=== PATIENT | male | born 1935 | race Caucasian/White ===

== ENCOUNTER 2016-11-29 13:58 | Emergency (ER) | payer MEDICARE ==
[~2016-11-29] VITALS: Ht 177.8 cm; Wt 91.0 kg
[~2016-11-29 13:58] MED LIST: IBUP600T44 PO; RXC5 PO
[2016-11-29 14:14] VITALS: TEMP 36.5; Ht 177.8 cm; Wt 91.0 kg
[2016-11-29] MEDS ORDERED: SODIUM CHLORIDE 0.9% 1000ML 250 ML IV STA (14:20)
--- NOTE | 2016-11-29 14:28 | EMERGENCY ROOM VISIT NOTE ---
History Report prepared by Nic: Holland Herrera Under the Supervision of: Dr. Gilberto Miller M.D. First contact with patient: 14:12 Stated Complaint: EVALUATION History of Present Illness The patient is an 81 year old male who presents to the Emergency Room for an evaluation after losing consciousness yesterday. The patient states he fell yesterday because he thinks he lost consciousness. He reports he was trying to put something in the closet. The patient notes he has passed out before, but yesterday he did not feel sick. He states he injured his knee when he fell, but it was evaluated by an orthopedic today. The patient reports his tests earlier were negative, and his knee is okay. He notes he feels lethargic, but it is his baseline. The patient states he lives alone and uses a cane to ambulate. He reports he takes 600mg of Ibuprofen three times a day for chronic back pain. The patient denies injury to his head, incontinence, biting his tongue, a history of seizures, chest pain, new shortness of breath, feeling his heart skipping or racing, abdominal pain, new vision changes, numbness, weakness, trouble speaking, blood or black stool, urinary symptoms, fever, taking new medication, being on blood thinners, and a history of diabetes. Source of History: patient Onset: yesterday Position: other (global) Quality: other (loss of consciousness) Timing: resolved Associated Symptoms: No fevers, No chest pain, No SOB, No abdominal pain, No urinary symptoms, No weakness, No numbness Note: Denies: injury to his head, incontinence, biting his tongue, a history of seizures, feeling his heart skipping or racing, new vision changes, trouble speaking, blood or black stool, taking new medication, being on blood thinners, and a history of diabetes. Review of Systems See HPI for pertinent positives & negatives. A total of 10 systems reviewed and were otherwise negative. Past Medical & Surgical Patient denies a history of chronic illness. Old medical records were reviewed. Nurse's notes were reviewed and I agree with. Family History Patient reports no known family medical history. Social History Smoking Status: Never Smoker Marital Status: Housing Status: lives alone Occupation Status: retired Current/Historical Medications Scheduled PRN Ibuprofen (Motrin), 600 MG PO DAILY PRN for Pain Allergies Coded Allergies: No Known Allergies (Unverified , 8/25/14) Physical Exam Vital Signs Date Time Temp Pulse Resp B/P (MAP) Pulse Ox O2 Delivery O2 Flow Rate FiO2 11/29/16 16:47 61 14 115/73 93 11/29/16 16:00 74 15 125/66 92 Room Air 11/29/16 15:09 70 15 118/69 95 Room Air 11/29/16 14:14 36.5 71 20 130/77 92 Room Air 11/29/16 14:13 81 Physical Exam General: Non-ill appearing older male in no acute distress. Normal speech. Alert and oriented x3. HEENT: Normal cephalic atraumatic. Pupils are equal round and reactive to light. Extraocular movements are intact. Oropharynx is pink with moist mucous membranes. No swelling of the mouth lips or tongue. Neck: Supple with a midline trachea. No meningeal signs or stiffness, no JVD or bruits. No Stridor. Chest: Clear to auscultation bilaterally. No wheezes or rhonchi. No increased work of breathing. Heart: regular rate and rhythm. Abdomen: Soft nontender, nondistended without rebound guarding or rigidity. Extremities: No cyanosis clubbing or edema. No calf tenderness or assymetry. Bruise on the left knee minimal tenderness on palpation. Spine/Back. Non tender to palpation. No CVA tenderness Skin: Good turgor without rashes. Neurologic exam: Cranial nerves two through 12 are intact. Motor and sensation are intact and symmetrical throughout. No tremor. Finger to nose intact. No pronator drift. Medical Decision & Procedures ER Provider Diagnostic Interpretation: Radiology results as stated below per my review and radiologist interpretation: HEAD WITHOUT CONTRAST (CT) CLINICAL HISTORY: 81 years-old Male with fall yesterday. Acute head injury status post fall TECHNIQUE: Multiple axial CT images of the head were obtained without contrast. A dose lowering technique was utilized adhering to the principles of ALARA. CT DOSE: 614.27 mGy.cm COMPARISON: Brain MR 01/20/2016. FINDINGS: No acute intracranial hemorrhage, midline shift, mass, large territorial ischemia or abnormal extra-axial collection. Mild atrophy with ex vacuo ventriculomegaly. Background chronic microvascular ischemic changes. 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 3 mm focus of increased attenuation near the right 10:20 AM on image 12 of series 2 suggests a small calcification. The calvarium is intact. The mastoid air cells, and middle ear cavities are clear. Mild ethmoid sinus disease. IMPRESSION: 1. No acute intracranial abnormality. 2. Atrophy with chronic microvascular ischemic changes and remote lacunar infarction of the left bray radiata. The above report was generated using voice recognition software. It may contain grammatical, syntax or spelling errors. Electronically signed by: Twan Diaz M.D. 11/29/2016 3:18 PM Dictated Date/Time: 11/29/2016 3:02 PM CHEST ONE VIEW PORTABLE CLINICAL HISTORY: Atypical chest pain COMPARISON STUDY: 12/09/2015 FINDINGS: The heart remains enlarged. There are calcified left hilar lymph nodes. There is no failure. There is no focal pulmonary consolidation. There are no pleural effusions.[ IMPRESSION: No active disease in the chest. Electronically signed by: Gunner Stover M.D. 11/29/2016 2:47 PM Dictated Date/Time: 11/29/2016 2:47 PM Laboratory Results 11/29/16 14:30 Red Blood Count 4.04, Mean Corpuscular Volume 92.6, Mean Corpuscular Hemoglobin 31.9, Mean Corpuscular Hemoglobin Concent 34.5, Mean Platelet Volume 9.4, Neutrophils (%) (Auto) 72.6, Lymphocytes (%) (Auto) 14.4, Monocytes (%) (Auto) 7.8, Eosinophils (%) (Auto) 2.7, Basophils (%) (Auto) 0.8, Neutrophils # (Auto) 5.43, Lymphocytes # (Auto) 1.08, Monocytes # (Auto) 0.58, Eosinophils # (Auto) 0.20, Basophils # (Auto) 0.06 11/29/16 14:30 Test 11/29/16 14:30 11/29/16 14:37 White Blood Count 7.48 K/uL (4.8-10.8) Red Blood Count 4.04 M/uL (4.7-6.1) Hemoglobin 12.9 g/dL (14.0-18.0) Hematocrit 37.4 % (42-52) Mean Corpuscular Volume 92.6 fL (80-100) Mean Corpuscular Hemoglobin 31.9 pg (25-34) Mean Corpuscular Hemoglobin Concent 34.5 g/dl (32-36) Platelet Count 180 K/uL (130-400) Mean Platelet Volume 9.4 fL (7.4-10.4) Neutrophils (%) (Auto) 72.6 % Lymphocytes (%) (Auto) 14.4 % Monocytes (%) (Auto) 7.8 % Eosinophils (%) (Auto) 2.7 % Basophils (%) (Auto) 0.8 % Neutrophils # (Auto) 5.43 K/uL (1.4-6.5) Lymphocytes # (Auto) 1.08 K/uL (1.2-3.4) Monocytes # (Auto) 0.58 K/uL (0.11-0.59) Eosinophils # (Auto) 0.20 K/uL (0-0.5) Basophils # (Auto) 0.06 K/uL (0-0.2) RDW Standard Deviation 50.9 fL (36.4-46.3) RDW Coefficient of Variation 15.1 % (11.5-14.5) Immature Granulocyte % (Auto) 1.7 % Immature Granulocyte # (Auto) 0.13 K/uL (0.00-0.02) Anion Gap 8.0 mmol/L (3-11) Est Creatinine Clear Calc Drug Dose 47.4 ml/min Estimated GFR () 56.4 Estimated GFR (Non- 48.6 BUN/Creatinine Ratio 22.7 (10-20) Calcium Level 8.9 mg/dl (8.5-10.1) Total Bilirubin 0.6 mg/dl (0.2-1) Direct Bilirubin < 0.1 mg/dl (0-0.2) Aspartate Amino Transf (AST/SGOT) 16 U/L (15-37) Alanine Aminotransferase (ALT/SGPT) 19 U/L (12-78) Alkaline Phosphatase 68 U/L (45-117) Total Creatine Kinase 137 U/L (39-308) Creatine Kinase MB 2.1 ng/ml (0.5-3.6) Creatine Kinase MB Ratio 1.5 (0-3.0) Total Protein 7.2 gm/dl (6.4-8.2) Albumin 3.9 gm/dl (3.4-5.0) Lipase 217 U/L (73-393) Bedside Troponin I < 0.030 ng/ml (0-0.045) Laboratory studies as stated above per my review. Medications Administered Medications (Trade) Dose Ordered Sig/Yaima Route Start Time Stop Time Status Last Admin Dose Admin Sodium Chloride 250 ml @ 999 mls/hr Q16M STAT IV 11/29/16 14:20 11/29/16 14:35 DC 11/29/16 14:55 999 MLS/HR Sodium Chloride 500 ml @ 999 mls/hr Q31M STAT IV 11/29/16 15:51 11/29/16 16:21 DC 11/29/16 16:05 999 MLS/HR ECG Indication: other (fall) Rate (beats per minute): 76 Rhythm: normal sinus Findings: 1st degree AV block, PAC, RBBB, other (Poor baseline) Comparison ECG Date: 06/11/13 Change: Ectopy is now present ED Course 1412: Past medical records reviewed. The patient was evaluated in room B04B, and a complete history and physical examination were performed. 1420: Sodium Chloride 250 ml @ 999 mls/hr IV 1457: I attempted to reevaluate the patient, but he was at his CT scan. 1551: Ordered Sodium Chloride 500 ml @ 999 mls/hr IV 1555: I reevaluated the patient. He is resting comfortably and would like to go home. I updated the patient of his current exam findings. 1601: I discussed the patient's case with Dr. Ritter, Geriatrics. He is okay with the patient being discharged. 1604: Upon reevaluation, the patient is resting comfortably. I discussed the results and treatment plan with him. He verbalized agreement of the treatment plan. The patient was discharged home. Medical Decision Differentials include, but are not limited to; syncope, arrhythmia, traumatic injury, anemia, electrolyte metabolic abnormality, infection, and central neurological process. This patient comes in as described above. He was placed in room before. He had a possible syncopal episode yesterday injured his left knee his knee has been fully evaluated by the orthopedist and was cleared they sent him over here for evaluation of a syncopal episode.. The patient is asymptomatic he has no chest pain or shortness of breath and he has nothing to suggest acute stroke symptoms. He did not hit his head. IV access established EKG multiple blood testing was obtained. I also obtained a chest x-ray and head CT as well as urinalysis and culture. He's had no fever or recent illness or anything to suggest sepsis. EKG does not suggest acute coronary syndrome or arrhythmia with exception of frequent be PACs and ectopy. Cardiac biomarkers are not elevated. CAT scan of the head was unremarkable. The rest of blood work was unremarkable with the exception of BUN being elevated. He was hydrated with IV normal saline. I did discuss case with Dr. Ritter the patient strongly desires to go home at this point he has no complaints and has a normal neurologic exam. He may have been dehydrated. He will be discharged home with close follow-up. Medication Reconcilliation Current Medication List: was personally reviewed by me Blood Pressure Screening Patient's blood pressure: Normal blood pressure Blood pressure disposition: Did not require urgent referral Consults Time Called: 1553 Consulting Physician: Dr. Ritter, Geriatrics Returned Call: 1601 I discussed the patient's case with Dr. Ritter, Geriatrics. He is okay with the patient being discharged. Impression Primary Impression: Syncope Additional Impressions: Dehydration Contusion of left knee Scribe Attestation The scribe's documentation has been prepared under my direction and personally reviewed by me in its entirety. I confirm that the note above accurately reflects all work, treatment, procedures, and medical decision making performed by me. Departure Information Dispostion Home / Self-Care Referrals Chad Ritter M.D. (PCP) Forms HOME CARE DOCUMENTATION FORM, IMPORTANT VISIT INFORMATION, WORK / SCHOOL INSTRUCTIONS Patient Instructions My [facility] Additional Instructions Rest Drink plenty of fluids Be careful getting up and down. Return if: Worsening of symptoms, fever or chills, chest pain, shortness breath , any new problems or concerns. Follow-up with your doctor this week for recheck Problem Qualifiers
--- NOTE | 2016-11-29 14:48 | DIAGNOSTIC IMAGING REPORT ---
CHEST ONE VIEW PORTABLE CLINICAL HISTORY: Atypical chest pain COMPARISON STUDY: 12/09/2015 FINDINGS: The heart remains enlarged. There are calcified left hilar lymph nodes. There is no failure. There is no focal pulmonary consolidation. There are no pleural effusions.[ IMPRESSION: No active disease in the chest. Electronically signed by: Gunner Stover M.D. 11/29/2016 2:47 PM Dictated Date/Time: 11/29/2016 2:47 PM
[2016-11-29 14:49] LABS: BASO % 0.8 %; BASO ABS # 0.06 K/uL (0-0.2); COMPLETE YES; EOS % 2.7 %; HEMATOCRIT 37.4 % (42-52); IG% 1.7 %; LYMPH % 14.4 %; LYMPH ABS # 1.08 K/uL (1.2-3.4); MEAN CELL VOLUME 92.6 fL (80-100); MEAN CORPUSCULAR HEMOGLOBIN 31.9 pg (25-34); MEAN CORPUSCULAR HGB CONC 34.5 g/dl (32-36); MEAN PLATELET VOLUME 9.4 fL (7.4-10.4); MONO % 7.8 %; NEUT % 72.6 %; PLATELET COUNT 180 K/uL (130-400); RED BLOOD COUNT 4.04 M/uL (4.7-6.1); WHITE BLOOD COUNT 7.48 K/uL (4.8-10.8)
[2016-11-29 15:15] LABS: ALT/SGPT 19 U/L (12-78); BLOOD UREA NITROGEN 30 mg/dl (7-18); BUN/CREATININE RATIO 22.7 (10-20); CALCIUM 8.9 mg/dl (8.5-10.1); CARBON DIOXIDE 24 mmol/L (21-32); CHLORIDE 105 mmol/L (98-107); CREATININE 1.34 mg/dl (0.60-1.40); GLUCOSE 149 mg/dl (70-99); POTASSIUM 4.3 mmol/L (3.5-5.1); SODIUM 137 mmol/L (136-145)
--- NOTE | 2016-11-29 15:19 | DIAGNOSTIC IMAGING REPORT ---
HEAD WITHOUT CONTRAST (CT) CLINICAL HISTORY: 81 years-old Male with fall yesterday. Acute head injury status post fall TECHNIQUE: Multiple axial CT images of the head were obtained without contrast. A dose lowering technique was utilized adhering to the principles of ALARA. CT DOSE: 614.27 mGy.cm COMPARISON: Brain MR 01/20/2016. FINDINGS: No acute intracranial hemorrhage, midline shift, mass, large territorial ischemia or abnormal extra-axial collection. Mild atrophy with ex vacuo ventriculomegaly. Background chronic microvascular ischemic changes. 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 3 mm focus of increased attenuation near the right 10:20 AM on image 12 of series 2 suggests a small calcification. The calvarium is intact. The mastoid air cells, and middle ear cavities are clear. Mild ethmoid sinus disease. IMPRESSION: 1. No acute intracranial abnormality. 2. Atrophy with chronic microvascular ischemic changes and remote lacunar infarction of the left bray radiata. The above report was generated using voice recognition software. It may contain grammatical, syntax or spelling errors. Electronically signed by: Twan Diaz M.D. 11/29/2016 3:18 PM Dictated Date/Time: 11/29/2016 3:02 PM
[2016-11-29 15:20] LABS: ALKALINE PHOSPHATASE 68 U/L (45-117); AST/SGOT 16 U/L (15-37); CKMB/CK RATIO 1.5 (0-3.0)
[2016-11-29] MEDS ORDERED: SODIUM CHLORIDE 0.9% 1000ML 500 ML IV STA (15:51)
[2016-11-29 16:47] VITALS: BP 115/73; PULSE 61; O2SAT 93
== END 2016-11-29 16:37 | disposition home or self-care (01) ==
LOC: EDBD 13:58 → C.EDB 13:59
DX: R55 Syncope and collapse (principal); E86.0 Dehydration; S80.02XA Contusion of left knee, initial encounter; W19.XXXA Unspecified fall, initial encounter; G89.29 Other chronic pain; M54.9 Dorsalgia, unspecified